=== PATIENT | female | born 1945 ===

== ENCOUNTER 2019-05-29 12:45 | Outpatient (CLI) | payer OTHER ==
[~2019-05-29 12:45] MED LIST: ASA81 MG; CALTRATE PLUS T1 TAB; COZAAR100 MG; ZANTAC300 MG
== END 2019-05-29 12:49 | disposition home or self-care (01) ==
LOC: NUCLEAR 12:45
DX: M81.0 Age-related osteoporosis without current pathological fracture (principal)

== ENCOUNTER 2019-06-04 10:53 | Outpatient (CLI) | payer OTHER | END 2019-06-04 11:16 | disposition home or self-care (01) | LOC: MAMO-SONO 10:53 | DX: Z12.31 Encounter for screening mammogram for malignant neoplasm of breast (principal); Z87.898 Personal history of other specified conditions; M25.561 Pain in right knee; M25.512 Pain in left shoulder ==

== ENCOUNTER 2021-03-07 14:00 | Outpatient (CLI) | payer OTHER | END 2021-03-08 07:56 | disposition home or self-care (01) | LOC: NUCLEAR 14:00 | PROVIDERS: ATTEND General Practice | DX: M81.0 Age-related osteoporosis without current pathological fracture (principal) ==

== ENCOUNTER 2021-03-11 08:23 | Outpatient (CLI) | payer OTHER | END 2021-03-11 08:34 | disposition home or self-care (01) | LOC: MAMO-SONO 08:23 | PROVIDERS: ATTEND General Practice | DX: N60.02 Solitary cyst of left breast (principal); Z12.31 Encounter for screening mammogram for malignant neoplasm of breast ==